=== PATIENT | female | born 1975 | race Caucasian/White ===

== ENCOUNTER 2017-03-28 01:03 | Emergency (ER) | payer BC | END 2017-03-28 06:19 | disposition home or self-care (01) | LOC: ER 01:03 | DX: R07.89 Other chest pain (principal); R00.2 Palpitations; E87.6 Hypokalemia; I10 Essential (primary) hypertension; Z90.49 Acquired absence of other specified parts of digestive tract; Z79.899 Other long term (current) drug therapy; Z98.890 Other specified postprocedural states | CPT/HCPCS: 36415; 96374; 96375; J0360; J2550 ==